=== PATIENT | male | born 1945 | race Hispanic/Latino ===

== ENCOUNTER 2017-07-02 12:44 | Emergency (ER) | payer OTHER ==
--- NOTE | 2017-07-02 14:42 | ER ---
Nurse's Notes [facility] Name: Andrews Chapman III Age: 72 yrs Sex: Male : 1945 Arrival Date: 07/02/2017 Time: 12:45 Bed 20 Private MD: Zeny Alanis Diagnosis: Torticollis Presentation: 07/02 12:57 Presenting complaint: Patient states: pain to right side of neck that began 2 days ago. aa5 Pt states "I think it's a neck strain". Transition of care: patient was not received from another setting of care. Onset of symptoms was June 2017. Initial Sepsis Screen: Does the patient meet any 2 criteria? No. Patient's initial sepsis screen is negative. Does the patient have a suspected source of infection? No. Patient's initial sepsis screen is negative. Care prior to arrival: None. 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 - Social history:: Smoking status: Patient/guardian denies using tobacco. Screenin:17 Abuse screen: Denies threats or abuse. Denies injuries from another. Nutritional ed1 screening: No deficits noted. Tuberculosis screening: No symptoms or risk factors identified. Fall Risk None identified. Assessment: 14:17 General: Appears uncomfortable, Behavior is calm, cooperative. Pain: Complains of pain ed1 in right posterior aspect of neck Pain does not radiate. Pain currently is 2 out of 10 on a pain scale. Quality of pain is described as burning, sharp, Pain began 2-3 days ago. Is continuous, Current management is with Advil, is partially effective. Neuro: Level of Consciousness is awake, alert, obeys commands, Oriented to person, place, time, situation, Senior Director Insight are equal bilaterally Moves all extremities. Full function Gait is steady, Speech is normal, Facial symmetry appears normal, Pupils are PERRLA, Intact Denies weakness blurred vision dizziness, headache. Cardiovascular: Denies chest pain, Heart tones S1 S2 present Capillary refill < 3 seconds in bilateral fingers. Respiratory: Airway is patent Respiratory effort is even, unlabored, Respiratory pattern is regular, symmetrical, Breath sounds are clear bilaterally. GI: No signs and/or symptoms were reported involving the gastrointestinal system. : No signs and/or symptoms were reported regarding the genitourinary system. EENT: No signs and/or symptoms were reported regarding the EENT system. Derm: Skin is pink, warm \\T\\ dry. Musculoskeletal: Circulation, motion, and sensation intact. 14:17 Reassessment: I agree with assessment completed by DIPESH Underwood. iw 14:58 Reassessment: Patient appears in no apparent distress at this time. No changes from ed1 previously documented assessment. Patient and/or family updated on plan of care and expected duration. Pain level reassessed. Patient is alert, oriented x 3, equal unlabored respirations, skin warm/dry/pink. Vital Signs: 13:01 BP 184 / 104; Pulse 78; Resp 16 S; Temp 98.3(TE); Pulse Ox 95% on R/A; Weight 88.45 kg aa5 (R); Height 5 ft. 7 in. (170.18 cm) (R); Pain 0/10; 14:17 BP 196 / 96; Pulse 75; Resp 18; Pulse Ox 96% on R/A; Pain 2/10; ed1 13:01 Body Mass Index 30.54 (88.45 kg, 170.18 cm) aa5 13:01 Pt c/o pain to neck only with movement aa5 ED Course: 12:45 Patient arrived in ED. as 12:45 Zeny Alanis MD is Private Physician. as 12:58 Triage completed. aa5 12:58 Arm band placed on. aa5 14:11 Yasmine Jarvis LVN is Primary Nurse. ed1 14:17 Christian Richard NP is PHCP. pm1 14:17 Tyson Ryan MD is Attending Physician. pm1 14:17 Patient has correct armband on for positive identification. ed1 14:41 Zeny Alanis MD is Referral Physician. pm1 14:58 No provider procedures requiring assistance completed. Patient did not have IV access ed1 during this emergency room visit. Administered Medications: No medications were administered Outcome: 14:41 Discharge ordered by . pm1 14:58 Discharged to home ambulatory. ed1 14:58 Condition: good 14:58 Discharge instructions given to patient, Instructed on discharge instructions, follow up and referral plans. Demonstrated understanding of instructions, follow-up care. 14:59 Patient left the ED. ed1 Signatures: Laura Chapman Irene RN RN iw Orin Ríos RN RN aa5 Yasmine Jarvis LVN [facility]ILDCARE CENTER DIRECTOR ed1 Christian Richard NP SIGNALLING AND COMMUNICATIONS ENGINEER pm1 Corrections: (The following items were deleted from the chart) 12:59 12:57 Acuity: JACKELIN 4 aa5 aa5
--- NOTE | 2017-07-02 14:42 | EDPHYS ---
Physician Documentation [facility] Name: Andrews Chapman III Age: 72 yrs Sex: Male : 1945 Arrival Date: 07/02/2017 Time: 12:45 Bed 20 Private MD: Zeny Alanis ED Physician Tyson Ryan HPI: 07/02 14:30 This 72 yrs old Male presents to ER via Ambulatory with complaints of Neck pm1 Pain. 14:30 The patient or guardian complains of pain, that is acute. The symptoms are located on pm1 the right posterior aspect of neck. Onset: The symptoms/episode began/occurred 2 day(s) ago. Context: The problem was sustained at home, The neck injury/problem resulted from Reaching with his right hand for object in his garage that was obstructed with items on the floor. Associated signs and symptoms: Pertinent negatives: chills, fever, headache, numbness, tingling, weakness. The pain does not radiate. Modifying factors: The symptoms are alleviated by nothing. the symptoms are aggravated by movement and twisting of head to the left. Severity of symptoms: in the emergency department the symptoms are unchanged. The patient has not experienced similar symptoms in the past. Seen by his chiropractor today and no adjustments were performed. recommended that patient come to the ER for an evalution. 14:30 ibuprofen has been working for his pain. 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 - Social history:: Smoking status: Patient/guardian denies using tobacco. ROS: 14:30 Constitutional: Negative for fever, chills, and weight loss, Eyes: Negative for injury, pm1 pain, redness, and discharge, ENT: Negative for injury, pain, and discharge. 14:30 Cardiovascular: Negative for chest pain, palpitations, and edema, Respiratory: Negative for shortness of breath, cough, wheezing, and pleuritic chest pain, Abdomen/GI: Negative for abdominal pain, nausea, vomiting, diarrhea, and constipation, Back: Negative for injury and pain, MS/Extremity: Negative for injury and deformity, Skin: Negative for injury, rash, and discoloration, Neuro: Negative for headache, weakness, numbness, tingling, and seizure. 14:30 Neck: Positive for pain with movement, Negative for mass, swollen nodes, bony tenderness. Exam: 14:30 Constitutional: This is a well developed, well nourished patient who is awake, alert, pm1 and in no acute distress. Head/Face: Normocephalic, atraumatic. 14:30 ENT: Nares patent. No nasal discharge, no septal abnormalities noted. Tympanic membranes are normal and external auditory canals are clear. Oropharynx with no redness, swelling, or masses, exudates, or evidence of obstruction, uvula midline. Mucous membranes moist. Neck: Trachea midline, no thyromegaly or masses palpated, and no cervical lymphadenopathy. Supple, full range of motion without nuchal rigidity, or vertebral point tenderness. No Meningismus. Chest/axilla: Normal chest wall appearance and motion. Nontender with no deformity. No lesions are appreciated. Cardiovascular: Regular rate and rhythm with a normal S1 and S2. No gallops, murmurs, or rubs. Normal PMI, no JVD. No pulse deficits. Respiratory: Lungs have equal breath sounds bilaterally, clear to auscultation and percussion. No rales, rhonchi or wheezes noted. No increased work of breathing, no retractions or nasal flaring. Abdomen/GI: Soft, non-tender, with normal bowel sounds. No distension or tympany. No guarding or rebound. No evidence of tenderness throughout. Back: No spinal tenderness. No costovertebral tenderness. Full range of motion. Skin: Warm, dry with normal turgor. Normal color with no rashes, no lesions, and no evidence of cellulitis. MS/ Extremity: Pulses equal, no cyanosis. Neurovascular intact. Full, normal range of motion. 14:30 Neck: External neck: is normal, C-spine: appears grossly normal, vertebral tenderness, is not appreciated, Trachea: is midline with no obvious abnormalities, no acute changes, ROM/movement: Meningeal signs: are not present, Kernig's sign is negative, Brudzinski's sign is negative, nuchal rigidity, is not appreciated, Lymph nodes: no appreciated lymphadenopathy. 14:30 Neuro: Orientation: is normal, Mentation: is normal, Cranial nerves: CN II- XII are normal as tested, Cerebellar function: normal finger to nose testing, Motor: is normal, moves all fours, strength is 5/5 in all extremities, Sensation: is normal, no obvious gross deficits, Gait: is steady, at a normal pace, without difficulty. Vital Signs: 13:01 BP 184 / 104; Pulse 78; Resp 16 S; Temp 98.3(TE); Pulse Ox 95% on R/A; Weight 88.45 kg aa5 (R); Height 5 ft. 7 in. (170.18 cm) (R); Pain 0/10; 14:17 BP 196 / 96; Pulse 75; Resp 18; Pulse Ox 96% on R/A; Pain 2/10; ed1 13:01 Body Mass Index 30.54 (88.45 kg, 170.18 cm) aa5 13:01 Pt c/o pain to neck only with movement aa5 MDM: 14:22 Patient medically screened. pm1 14:40 Data reviewed: vital signs. Data interpreted: Pulse oximetry: on room air is 96 %. pm1 Interpretation: normal. Counseling: I had a detailed discussion with the patient and/or guardian regarding: the historical points, exam findings, and any diagnostic results supporting the discharge/admit diagnosis, the need for outpatient follow up, to return to the emergency department if symptoms worsen or persist or if there are any questions or concerns that arise at home. 14:40 ED course: Patient offered additional medications for pain, patient refused Flexeril pm1 and Valium. Patient wants to continue taking ibuprofen and therapeutic approaches. Administered Medications: No medications were administered Disposition: 07/02/17 14:41 Discharged to Home. Impression: Torticollis. - Condition is Stable. - Discharge Instructions: Torticollis, Acute. - Medication Reconciliation Form, Thank You Letter form. - Follow up: Emergency Department; When: As needed; Reason: Worsening of condition. Follow up: Zeny Alanis MD; When: 2 - 3 days; Reason: Recheck today's complaints, Continuance of care, Re-evaluation by your physician. - Problem is new. - Symptoms have improved. Addendum: 07/04/2017 10:46 Co-signature as Attending Physician, Tyson Ryan MD I agree with the assessment and w a plan of care. Signatures: Orin Ríos, RN RN aa5 Yasmine Jarvis LVN FISHING MANAGER ed1 Christian Richard, LANDSCAPE ARCHITECT AND PLANNER LANDSCAPE ARCHITECT AND PLANNER pm1 Tyson Ryan MD MD wa Corrections: (The following items were deleted from the chart) 07/02 14:59 14:41 07/02/2017 14:41 Discharged to Home. Impression: Torticollis. Condition is ed1 Stable. Forms are Medication Reconciliation Form, Thank You Letter, Antibiotic Education, Prescription Opioid Use. Follow up: Emergency Department; When: As needed; Reason: Worsening of condition. Follow up: Zeny Alanis; When: 2 - 3 days; Reason: Recheck today's complaints, Continuance of care, Re-evaluation by your physician. Problem is new. Symptoms have improved. pm1
== END 2017-07-02 14:59 | disposition home or self-care (01) ==
LOC: ER 12:44
DX: M43.6 Torticollis (principal)
CPT/HCPCS: 99281

== ENCOUNTER 2023-07-23 10:37 | Emergency (ER) | payer OTHER ==
--- NOTE | 2023-07-23 11:32 | RAD REPORT ---
EXAM DESCRIPTION: Angella Single View07/23/2023 11:17 am CLINICAL HISTORY: loss of balance COMPARISON: Chest Pa And Lat (2 Views) dated 03/03/2017 TECHNIQUE: Portable AP view of the chest. FINDINGS: The lungs are clear. No pneumothorax or effusion. The cardiomediastinal contours are unre markable. IMPRESSION: No acute cardiopulmonary process.
--- NOTE | 2023-07-23 11:38 | RAD REPORT ---
EXAM DESCRIPTION: CT - Head Brain Wo Cont - 07/23/2023 11:13 am CLINICAL HISTORY: loss of balance COMPARISON: Sinus Wo Cont dated 06/11/2015; SINUS W O CONTRAST dated 11/27/2008 TECHNIQUE: Noncontrast head CT images were obtained without IV contrast. Multiplanar reformats were generated and reviewed. All CT scans are performed using dose optimization technique as appropriate and may include automated exposure control or mA/KV adjustment according to patient size. FINDINGS: No intracranial hemorrhage, mass, or edema. Midline structures are unremarkable. Normal ventricular caliber for age. Mattson-white matter differentiation is preserved, without evidence of acute infarct. No abnormal extra- axial fluid collections. Mild periventricular and deep white matter hypodensities, nonspecific, but s uggestive of chronic small vessel ischemic changes. Mastoid air cells and visualized portions of the paranasal sinuses are clear. No acute bony findings. IMPRESSION: No evidence of an acute intracranial process.
[2023-07-23] MEDS ORDERED: ONDANSETRON 4 MG/2 ML VIAL ONE (11:40)
[2023-07-23] MEDS ORDERED: MECLIZINE HCL 12.5 MG TAB ONE (11:41)
[2023-07-23 11:49] LABS: Absolute Basophils 0.1 K/uL (0-0.5); Absolute Eosinophils 0.1 K/uL (0-0.5); Absolute Lymphocytes (CBC) 1.5 K/uL (0.7-4.9); Absolute Monocytes 0.5 K/uL (0.1-1.3); Absolute Neutrophil 5.1 K/uL (1.8-8.0); Basophils % 1.1 % (0-1.3); Hematocrit 42.9 % (39.6-49.0); Hemoglobin 13.9 g/dL (13.6-17.9); Lymphocytes % 20.9 % (15.3-44.8); MCH 28.6 pg (27.0-35.0); MCHC 32.4 g/dL (32.0-36.0); MCV 88.2 fL (80-100); MPV 8.4 fL (7.6-11.3); Monocytes % 6.2 % (3.3-12.3); Neutrophils % 69.8 % (41.7-73.7); Nucleated Red Blood Cells % 0.1 % (0-0); Platelets 228 thou/uL (152-406); RBC Red Blood Cell Count 4.87 M/uL (4.33-5.43); Red Cell Distribution Width 15.6 % (12.1-15.2)
[2023-07-23 12:04] LABS: Albumin 3.6 g/dL (3.4-5.0); Albumin/Globulin Ratio 0.8 (1.1-1.8); Anion Gap 8.9 mEq/L (5.0-15.0); Bilirubin Total 0.6 mg/dL (0.2-1.0); Globulin 4.4 g/dL (2.3-3.5); Potassium 3.9 mEq/L (3.5-5.1); Troponin High Sensitivity 5.7 pg/mL (<58.9)
--- NOTE | 2023-07-23 12:42 | EDPHYS ---
Physician Documentation [facility] Name: Andrews Chapman III Age: 78 yrs Sex: Male : 1945 Arrival Date: 07/23/2023 Time: 10:37 Bed 17 Private MD: ED Physician Tera Jauregui HPI: 07/22 11:00 This 78 yrs old Male presents to ER via Ambulatory with complaints of Nausea, ms3 Dizziness, Ear Ringing. 11:00 78-year-old male with past medical history of vertigo, kidney disease, hypertension ms3 presents to the emergency department for waking at 5 AM with the ears ringing and nausea. Patient notes he does have head congestion. Patient denies any alleviating or inciting factors. . Historical: - Allergies: 10:51 Amoxicillin; ko1 - PMHx: 10:51 vertigo; Kidney disease; Hypertensive disorder; ko1 - PSHx: 10:51 None; ko1 - Immunization history:: Adult Immunizations up to date. - Infectious Disease History:: Denies. - Social history:: Smoking status: Patient denies any tobacco usage or history of. ROS: 11:00 Constitutional: Negative for fever, and chills. Neck: Negative for injury, pain, and ms3 swelling, Cardiovascular: Negative for chest pain, and palpitations. Respiratory: Negative for shortness of breath, cough, wheezing, and pleuritic chest pain, 11:00 MS/Extremity: Negative for injury and deformity, Skin: Negative for injury, rash, and discoloration, 11:00 Abdomen/GI: Positive for nausea, Negative for abdominal pain, vomiting, Exam: 11:00 Constitutional: This is a well developed, well nourished patient who is awake, alert, ms3 and in no acute distress. Head/Face: Normocephalic, atraumatic. Neck: Trachea midline, no cervical lymphadenopathy. Supple, full range of motion without nuchal rigidity, or vertebral point tenderness. No Meningismus. Chest/axilla: Normal chest wall appearance and motion. Nontender with no deformity. Cardiovascular: Regular rate and rhythm with a normal S1 and S2. No gallops, murmurs, or rubs. Normal PMI, no JVD. No pulse deficits. Respiratory: Lungs have equal breath sounds bilaterally, clear to auscultation and percussion. No rales, rhonchi or wheezes noted. No increased work of breathing, no retractions or nasal flaring. Abdomen/GI: Soft, non-tender, with normal bowel sounds. No distension or tympany. No guarding or rebound. No evidence of tenderness throughout. Skin: Warm, dry with normal turgor. Normal color with no rashes, no lesions, and no evidence of cellulitis. 11:00 ENT: External ear(s): are unremarkable, Ear canal(s): are normal, TM's: are normal, no evidence of bulging, no dullness, no erythema, no fluid levels, no rupture, normal bony landmarks, 11:00 Neuro: Orientation: is normal, Mentation: is normal, Memory: is normal, Cranial nerves: CN I not tested, CN II- XII are normal as tested, Cerebellar function: normal finger to nose testing, Motor: is normal, Sensation: is normal, Gait: is steady, appropriate for age, 11:34 ECG was reviewed by the Attending Physician. ms3 Vital Signs: 10:49 BP 138 / 75; Pulse 73; Resp 16; Temp 99(O); Pulse Ox 96% on R/A; ko1 12:15 BP 122 / 68; Pulse 68; Resp 18; Temp 98(O); Pulse Ox 97% on R/A; ap3 13:02 BP 120 / 66; Pulse 62; Resp 16; Temp 97.8(TE); Pulse Ox 95% on R/A; Pain 0/10; ap3 13:02 Pain Scale: Adult ap3 MDM: 10:58 Patient medically screened. ms3 11:00 Differential diagnosis: Tinnitus vs BPPV vs CVA. ms3 17:07 Data reviewed: vital signs, nurses notes, lab test result(s), EKG, radiologic studies, ms3 and as a result, I will discharge patient. I considered the following discharge prescriptions or medication management in the emergency department Medications were administered in the Emergency Department. See MAR. Independent interpretation of the following test(s) in the Emergency Department EKG: See my EKG interpretation above. Care significantly affected by the following chronic conditions: Hypertension, Chronic Kidney Disease. Counseling: I had a detailed discussion with the patient and/or guardian regarding the historical points, exam findings, and any diagnostic results supporting the discharge/admit diagnosis, lab results, radiology results, the need for outpatient follow up, to return to the emergency department if symptoms worsen or persist or if there are any questions or concerns that arise at home. Special discussion: I discussed with the patient/guardian in detail that at this point there is no indication for admission to the hospital. It is understood, however, that if the symptoms persist or worsen the patient needs to return immediately for re-evaluation. ED course: Discussed labs, imaging with patient and his . Patient states he is improved, alert and oriented x 4, no apparent distress, nontoxic-appearing. Patient to follow-up with his primary care physician in 2 to 3 days. Patient understands and agrees with plan. All questions were answered. Return precautions discussed include worsening symptoms, or any other concerns.. 07/22 11:00 Order name: CBC with Diff; Complete Time: 12:14 ms3 07/22 11:00 Order name: Magnesium; Complete Time: 12:14 ms3 07/22 11:00 Order name: Troponin High Sensitivity; Complete Time: 12:14 ms3 07/22 11:00 Order name: CMP; Complete Time: 12:14 ms3 07/22 11:00 Order name: CT Head Brain wo Cont; Complete Time: 11:42 ms3 07/22 11:00 Order name: Chest Single View XRAY; Complete Time: 11:42 ms3 07/22 11:00 Order name: EKG; Complete Time: 11:01 ms3 07/22 11:00 Order name: Cardiac monitoring; Complete Time: 11:36 ms3 07/22 11:00 Order name: EKG - Nurse/Tech; Complete Time: 11:36 ms3 07/22 11:00 Order name: IV Saline Lock; Complete Time: 11:36 ms3 07/22 11:00 Order name: Labs collected and sent; Complete Time: 11:36 ms3 07/22 11:00 Order name: NPO; Complete Time: 11:38 ms3 07/22 11:00 Order name: O2 Per Protocol; Complete Time: :36 ms3 07/22 11:00 Order name: O2 Sat Monitoring; Complete Time: 11:36 ms3 EC:34 Rate is 69 beats/min. Rhythm is regular. QRS [place] is Normal. FL interval is normal. QRS ms3 interval is normal. Clinical impression: Normal ECG. Interpreted by me. Reviewed by me. Administered Medications: 12:11 Drug: Meclizine PO 50 mg PO once Route: PO; ap3 13:25 Follow up: Response: No adverse reaction; Marked relief of symptoms ap3 12:11 Drug: Ondansetron IVP 4 mg IVP once; over 2 minutes Route: IVP; Site: left antecubital; ap3 13:26 Follow up: Response: No adverse reaction ap3 Disposition Summary: 07/23/23 12:41 Discharge Ordered Notes: Location: Home ms3 Condition: Stable ms3 Diagnosis - Nausea ms3 - Dizziness ms3 Followup: ms3 - With: Private Physician - When: 2 - 3 days - Reason: Recheck today's complaints Discharge Instructions: - Discharge Summary Sheet ms3 - Nausea, Adult ms3 - Dizziness, [id number] ms3 Forms: - Medication Reconciliation Form ms3 - Antibiotic Education ms3 - Prescription Opioid Use ms3 - Patient Portal Instructions ms3 - Leadership Thank You Letter ms3 Prescriptions: - Meclizine 25 mg Oral Tablet - take 1 tablet ORAL route every 8 hours As needed; 30 tablet; Refills: 0, ms3 Product Selection Permitted - Zofran 4 mg Oral tablet - take 1 tablet SUBLINGUAL route every 8 hours; 15 tablet; Refills: 0, Product ms3 Selection Permitted Signatures: Dispatcher [employer] Nguyen Cordero, RN RN ap3 Tera Jauregui DO DO ms3 Leah Dodson, RN RN ko1 Corrections: (The following items were deleted from the chart) 11:01 11:00 CBC+H.LAB.BRZ ordered. EDMS EDMS 11: 11:00 MAGNESIUM+C.LAB.BRZ ordered. EDMS EDMS 11: 11:00 Troponin High Sensitivity+C.LAB.BRZ ordered. EDMS EDMS 11: 11:00 COMPREHENSIVE METABOLIC PANEL+C.LAB.BRZ ordered. EDMS EDMS
--- NOTE | 2023-07-23 12:42 | ER ---
Nurse's Notes [facility] Name: Andrews Chapman III Age: 78 yrs Sex: Male : 1945 Arrival Date: 07/23/2023 Time: 10:37 Bed 17 Private MD: Diagnosis: Nausea;Dizziness Presentation: 07/22 10:49 Chief complaint: Patient states: woke up at 5 with ringing in ears, dizzy and ko1 nauseated, no vomiting but came close. Went to urgent care and they sent me here when i almost threw up in the lobby. Coronavirus screen: At this time, the client does not indicate any symptoms associated with coronavirus-19. Ebola Screen: No symptoms or risks identified at this time. Initial Sepsis Screen: Does the patient meet any 2 criteria? No. Patient's initial sepsis screen is negative. Does the patient have a suspected source of infection? No. Patient's initial sepsis screen is negative. Risk Assessment: Do you want to hurt yourself or someone else? Patient reports no desire to harm self or others. Onset of symptoms was July 23, 2023. 10:49 Method Of Arrival: Ambulatory ko1 10:49 Acuity: JACKELIN 3 ko1 Triage Assessment: 10:51 General: Appears in no apparent distress. Behavior is calm, cooperative, appropriate ko1 for age. Pain: Denies pain. GI: Reports nausea. Historical: - Allergies: 10:51 Amoxicillin; ko1 - PMHx: 10:51 vertigo; Kidney disease; Hypertensive disorder; ko1 - PSHx: 10:51 None; ko1 - Immunization history:: Adult Immunizations up to date. - Infectious Disease History:: Denies. - Social history:: Smoking status: Patient denies any tobacco usage or history of. Screenin:12 Abuse screen: Denies threats or abuse. Nutritional screening: No deficits noted. ap3 Tuberculosis screening: No symptoms or risk factors identified. 13:27 [facility] ED Fall Risk Assessment (Adult) History of falling in the last 3 months, ap3 including since admission No falls in past 3 months (0 pts) Confusion or Disorientation No (0 pts) Intoxicated or Sedated No (0 pts) Impaired Gait No (0 pts) Mobility Assist Device Used No (0 pt) Altered Elimination No (0 pt) Score/Fall Risk Level 0 - 2 = Low Risk Oriented to surroundings, Maintained a safe environment, Educated pt \T\ family on fall prevention, incl call for assistance when getting out of bed, Assessed \T\ reinforced patient's understanding of fall precautions. Assessment: 12:11 General: Appears in no apparent distress. Behavior is calm, cooperative, appropriate ap3 for age. Pain: Denies pain. Neuro: Level of Consciousness is awake, alert, obeys commands, Oriented to person, place, time, situation, Reports dizziness. Cardiovascular: Patient's skin is warm and dry. Respiratory: Airway is patent Respiratory effort is even, unlabored, Respiratory pattern is regular, symmetrical. GI: Abdomen is non-distended, Reports nausea. 13:02 Reassessment: Patient and/or family updated on plan of care and expected duration. Pain ap3 level reassessed. Patient denies pain at this time. Patient states feeling better. Vital Signs: 10:49 BP 138 / 75; Pulse 73; Resp 16; Temp 99(O); Pulse Ox 96% on R/A; ko1 12:15 BP 122 / 68; Pulse 68; Resp 18; Temp 98(O); Pulse Ox 97% on R/A; ap3 13:02 BP 120 / 66; Pulse 62; Resp 16; Temp 97.8(TE); Pulse Ox 95% on R/A; Pain 0/10; ap3 13:02 Pain Scale: Adult ap3 ED Course: 10:44 Patient arrived in ED. mg5 10:47 Tera Jauregui DO is Attending Physician. ms3 10:51 Triage completed. ko1 10:51 Arm band placed on right wrist. Patient placed in an exam room, on a stretcher, on ko1 manager monitoring, on pulse oximetry, Patient notified of wait time. 11:15 CT Head Brain wo Cont In Process Unspecified. EDMS 11:18 Chest Single View XRAY In Process Unspecified. EDMS 11:18 Nguyen Espinoza, CHRISTINA is Primary Nurse. ap3 11:36 Inserted saline lock: 20 gauge in left antecubital area, using aseptic technique. Blood jr12 collected. 11:36 CBC with Diff Sent. jr12 11:36 Magnesium Sent. jr12 11:37 Troponin High Sensitivity Sent. jr12 11:37 EKG done, by ED staff, reviewed by Trea Jauregui DO. jr12 12:12 No provider procedures requiring assistance completed. ap3 13:04 IV discontinued, intact, bleeding controlled, No redness/swelling at site. Pressure ap3 dressing applied. 13:26 Patient has correct armband on for positive identification. Placed in gown. Bed in low ap3 position. Call light in reach. Side rails up X 1. Adult w/ patient. Provided Education on: ed process, call salgado. Client placed on continuous cardiac and pulse oximetry monitoring. NIBP monitoring applied. Door closed. Noise minimized. Moved to private room. Warm blanket given. Administered Medications: 12:11 Drug: Meclizine PO 50 mg PO once Route: PO; ap3 13:25 Follow up: Response: No adverse reaction; Marked relief of symptoms ap3 12:11 Drug: Ondansetron IVP 4 mg IVP once; over 2 minutes Route: IVP; Site: left antecubital; ap3 13:26 Follow up: Response: No adverse reaction ap3 Medication: 12:12 VIS not applicable for this client. ap3 Outcome: 12:41 Discharge ordered by MD. ms3 13:04 Discharged to home ambulatory, with family, ap3 13:04 Condition: stable 13:04 Discharge instructions given to patient, family, Instructed on discharge instructions, follow up and referral plans. medication usage, Demonstrated understanding of instructions, follow-up care, medications, Prescriptions given X 2, 13:28 Patient left the ED. ap3 Signatures: Dispatcher [employer] EDMS Nguyen Espinoza RN RN ap3 Tera Jauregui DO DO ms3 Leah Dodson RN RN [email or web address] Whitney Bai 5 Pooja Mism jr12
[2023-07-23 13:49] VITALS: BP 120/66; TEMP 97.8; O2SAT 95
--- NOTE | 2023-07-27 14:29 | EKG ---
Test Date: 2023-07-23 Test Time: 11:23:08 Machine Repairer: MAXIM MEASUREMENT RESULTS: Intervals: Rate: 69 ME: 180 QRSD: 72 QT: 410 QTc: 439 [place]: P: 25 ME: 180 QRS: 42 T: 16 INTERPRETIVE STATEMENTS: Normal sinus rhythm Normal ECG Compared to ECG 12/25/2005 11:33:48 Myocardial infarct finding no longer present Electronically Signed On 07-27-23 14:15:48 CDT by Yoav Agarwal
== END 2023-07-23 13:28 | disposition home or self-care (01) ==
LOC: ER 10:37
DX: R11.0 Nausea (principal); R42 Dizziness and giddiness; I10 Essential (primary) hypertension; Z88.1 Allergy status to other antibiotic agents
CPT/HCPCS: 93005; 85025; 36415; 83735; 84484; 80053; 70450; 71045; 96374; 99285; J8597; J2405